=== PATIENT | female | born 1940 | race Caucasian/White ===

== ENCOUNTER → 2023-04-07 10:54 | Outpatient (BNVA) | payer MEDICARE, SELFPAY | PROVIDERS: Visit Provider Neurological Surgery | DX: G95.9 Disease of spinal cord, unspecified (principal); M54.12 Radiculopathy, cervical region; G95.20 Unspecified cord compression | CPT/HCPCS: 99202 ==

== ENCOUNTER 2023-05-18 08:12 | Day surgery (SDC) | payer MEDICARE, SELFPAY ==
[2023-04-28 12:39] VITALS: BP 161/76; PULSE 81; RESP 16; O2SAT 94; BMI 27.3
--- NOTE | 2023-04-28 13:00 | P.CONAN_ITS ---
Documented by User: Chantel Marino NP 05/13/23 10:52 HPI - Anesthesia Eval Consult details Narrative: 83yo F for C3-C4 (ACDF) Ant Cerv Discectomy w/ fusion No recent illness PCP clearance appt 05/13/23. (uncontrolled BP). Unclear if patient started new anti-htn rx from last pcp visit Pulmo optimized at 04/26/23 appt. Changed atrovent to treligy but pt did not start yet. Encouraged to take rx as instructed by entertainment centre manager. Baseline SOB. Follows pulmo. No chest pain. AAA monitored yearly with US by vascular in [place] - 3.6 cm PMFSH Active Problems Active Problems: All Active Problems (Updated 04/28/23 @ 12:16 by Katia Nj RN) Cervical myelopathy with cervical radiculopathy (Acute) Cervical cord compression with myelopathy (Acute) Past Medical History Medical History (Updated 04/28/23 @ 12:16 by Katia Nj RN) AAA (abdominal aortic aneurysm) Abdominal hernia Cataract COPD (chronic obstructive pulmonary disease) Difficulty swallowing Diverticulosis Elevated cholesterol Hyperlipidemia Lipid disorder Localized swelling, mass and lump, unspecified Low back pain Neck pain Osteoporosis Peripheral neuropathy Pulmonary nodule Rheumatoid arthritis SOB (shortness of breath) Family History Family history of problems with anesthesia: No Surgical History Surgical History (Updated 04/28/23 @ 12:27 by Katia Nj RN) H/O colonoscopy History of cardiac catheterization History of lung surgery Hx of cervical spine surgery Hx of foot surgery Hx of knee surgery History of Problems with Anesthesia: No Social History Social History Are you a primary respite care provider to a significant other at home: No Do you presently have visiting nurse or other home services: No Patient Tobacco Use Status: Former Tobacco user Quit Date: 2012 Tobacco use type: Cigarette Years Smoked: 35 Smoked in Last 30 Days: No Use of substances other than those prescribed or required for medical reasons: No Have you been hit, kicked, punched, or otherwise hurt by someone within the past year? If so, by whom?: No Are you DNR?: No Advance Directives: No Advance Directives Information Provided: No Advance Directives on File: No Recently lost weight without trying: No Eating poorly because of decreased appetite: No Nutrition Risks: No Nutritional Risk Poor oral hygiene: No Meds Allergies Allergy/AdvReac Type Severity Reaction Status Date / Time etidronate disodium Allergy Rash Verified 05/18/23 08:27 [From Didronel] fluticasone AdvReac Dry Mucus Verified 05/18/23 08:27 [From Advair Diskus] Membranes salmeterol AdvReac Dry Mucus Verified 05/18/23 08:27 [From Advair Diskus] Membranes tiotropium AdvReac Dry Mucus Verified 05/18/23 08:27 [From Spiriva Respimat] Membranes Home Medications Medication Instructions Recorded Confirmed Last Taken Type albuterol sulfate 90 mcg/actuation 2 puff inhalation QID PRN 04/27/23 05/18/23 05/11/23 History aerosol inhaler Shortness Of Breath aspirin 81 mg tablet,delayed 81 mg PO DAILY 04/27/23 05/18/23 05/11/23 History release ipratropium bromide 17 2 puff inhalation QID 04/27/23 05/18/23 05/15/23 History mcg/actuation HFA aerosol inhaler (Atrovent HFA) prednisone 5 mg tablet 5 mg PO DAILY 04/27/23 04/28/23 05/18/23 History pyridoxine (vitamin B6) 50 mg 100 mg PO DAILY 04/27/23 05/18/23 05/14/23 History tablet rosuvastatin 40 mg tablet 40 mg PO DAILY@1700 04/27/23 05/18/23 05/11/23 History sulfasalazine 500 mg tablet 1,000 mg PO DAILY 04/27/23 04/28/23 05/18/23 History cholecalciferol (vitamin D3) 50 50 mcg PO DAILY 04/28/23 05/18/23 05/14/23 History mcg (2,000 unit) tablet (Vitamin D3) cyanocobalamin (vitamin B-12) 2,000 mcg PO DAILY 04/28/23 05/18/23 05/14/23 History 2,000 mcg tablet,extended release (Vitamin B-12 ER) ibuprofen 400 mg tablet 400 mg PO DAILY PRN Pain 04/28/23 05/18/23 05/11/23 History Trelegy Ellipta 1 puff inhalation DAILY 05/18/23 05/18/23 05/18/23 History Exam Exam Date and Time: April 28, 2023 1300 Height,Weight and Vital Signs: Height 5 ft 2 in Weight 67.6 kg Last Vital Signs Pulse 81 04/28/23 12:39 Resp 16 04/28/23 12:39 BP 161/76 H 04/28/23 12:39 Pulse Ox 94 04/28/23 12:39 O2 Del Method Room Air 04/28/23 12:39 Pertinent Lab Results Pertinent Lab Results: Laboratory Tests 04/28/23 13:42 Sodium 144 Potassium 4.4 Chloride 105 Carbon Dioxide 30 H BUN 17 H Creatinine 0.73 CBC 02/2023 from outside lab WNL Narrative Narrative: EKG 04/2023 SA @ 88 Duplex Abdominal Aorta 05/2022 Distal aortic aneurysm 3cm x 3.6cm Airway Mallampati Class: II TM Dist: >3cm Neck ROM: Full Loose/Missing/Broken Teeth: Yes (#11 capped) Heart: RRR Lungs: CTAB Assessment and Plan Assessment Anesthesia Assessment: Anesthesia Plan Discussed and PAT Visit Final Anesthetic Review Family History of Problems with Anesthesia: No History of Problems with Anesthesia: No Documented by User: Harsh Mallory MD 05/18/23 09:32 [facility] Past Medical History Medical History (Updated 04/28/23 @ 12:16 by Katia Nj RN) AAA (abdominal aortic aneurysm) Abdominal hernia Cataract COPD (chronic obstructive pulmonary disease) Difficulty swallowing Diverticulosis Elevated cholesterol Hyperlipidemia Lipid disorder Localized swelling, mass and lump, unspecified Low back pain Neck pain Osteoporosis Peripheral neuropathy Pulmonary nodule Rheumatoid arthritis SOB (shortness of breath) Surgical History Surgical History (Updated 04/28/23 @ 12:27 by Katia Nj RN) H/O colonoscopy History of cardiac catheterization History of lung surgery Hx of cervical spine surgery Hx of foot surgery Hx of knee surgery Social History Social History Are you a primary respite care provider to a significant other at home: No Do you presently have visiting nurse or other home services: No Patient Tobacco Use Status: Former Tobacco user Quit Date: 2012 Tobacco use type: Cigarette Years Smoked: 35 Smoked in Last 30 Days: No Use of substances other than those prescribed or required for medical reasons: No Have you been hit, kicked, punched, or otherwise hurt by someone within the past year? If so, by whom?: No Are you DNR?: No Advance Directives: No Advance Directives Information Provided: No Advance Directives on File: No Recently lost weight without trying: No Eating poorly because of decreased appetite: No Nutrition Risks: No Nutritional Risk Poor oral hygiene: No Meds Allergies Allergy/AdvReac Type Severity Reaction Status Date / Time etidronate disodium Allergy Rash Verified 05/18/23 08:27 [From Didronel] fluticasone AdvReac Dry Mucus Verified 05/18/23 08:27 [From Advair Diskus] Membranes salmeterol AdvReac Dry Mucus Verified 05/18/23 08:27 [From Advair Diskus] Membranes tiotropium AdvReac Dry Mucus Verified 05/18/23 08:27 [From Spiriva Respimat] Membranes Home Medications Medication Instructions Recorded Confirmed Last Taken Type albuterol sulfate 90 mcg/actuation 2 puff inhalation QID PRN 04/27/23 05/18/23 05/11/23 History aerosol inhaler Shortness Of Breath aspirin 81 mg tablet,delayed 81 mg PO DAILY 04/27/23 05/18/23 05/11/23 History release ipratropium bromide 17 2 puff inhalation QID 04/27/23 05/18/23 05/15/23 History mcg/actuation HFA aerosol inhaler (Atrovent HFA) prednisone 5 mg tablet 5 mg PO DAILY 04/27/23 04/28/23 05/18/23 History pyridoxine (vitamin B6) 50 mg 100 mg PO DAILY 04/27/23 05/18/23 05/14/23 History tablet rosuvastatin 40 mg tablet 40 mg PO DAILY@1700 04/27/23 05/18/23 05/11/23 History sulfasalazine 500 mg tablet 1,000 mg PO DAILY 04/27/23 04/28/23 05/18/23 History cholecalciferol (vitamin D3) 50 50 mcg PO DAILY 04/28/23 05/18/23 05/14/23 History mcg (2,000 unit) tablet (Vitamin D3) cyanocobalamin (vitamin B-12) 2,000 mcg PO DAILY 04/28/23 05/18/23 05/14/23 History 2,000 mcg tablet,extended release (Vitamin B-12 ER) ibuprofen 400 mg tablet 400 mg PO DAILY PRN Pain 04/28/23 05/18/23 05/11/23 History Trelegy Ellipta 1 puff inhalation DAILY 05/18/23 05/18/23 05/18/23 History Assessment and Plan Assessment Anesthesia Assessment: Chart Reviewed Final Anesthetic Review NPO: Yes ASA Class: III Final Preanesthetic Review: No Changes in Pt Med Stat, Meds/Allgs Chart Reviewed, Consent Obtained/Reviewed and Anes Risks/Benef Reviewed Patient Risk: Intermediate Procedure Risk: Intermediate Anesthetic Plan Anesthetic Plan: GA Disposition: Standard PACU
[2023-04-28 14:39] LABS: Anion Gap 13 (12-20); Blood Urea Nitrogen 17 mg/dL (9-16); Calcium 9.5 mg/dL (8.4-10.2); Carbon Dioxide 30 mmol/L (22-29); Chloride 105 mmol/L (96-108); Creatinine Clr Calc Pharmacy 54.4; Estimated Glomerular Filt Rate > 60; Glucose Random 103 mg/dL (60-115); Potassium 4.4 mmol/L (3.3-5.1); Sodium 144 mmol/L (135-145)
[2023-05-18] VITALS (10 sets, daily range): BP systolic 133–171; BP diastolic 57–82; PULSE 74–92; RESP 7–18; TEMP 36.4–37.4; O2SAT 92–98
--- NOTE | ~2023-05-18 | FL_ITS ---
EXAMINATION: XR FLUOROSCOPY WITH IMAGES CLINICAL INFORMATION: C3/C4 ACDF COMPARISON: None available. TECHNIQUE: Fluoroscopy Supervised By: Tiffany. Fluoroscopy Time: 0 minutes. Cumulative Dose: 0.713 mGy. DAP: 0.145 Gycm2. Images: 2. FINDINGS: Images demonstrate surgical instruments present. Anterior plate and screws. The patient is intubated FL/FL guidance in OR IMPRESSION: Imaging assistance provided during a spine procedure
[2023-05-18] MEDS: Albuterol Sulfate (0.083%) 2.5 MG/3 ML VIAL.NEB INHALE (08:43)
[2023-05-18] MEDS: Gabapentin 300 MG CAPSULE PO (08:53)
[2023-05-18] MEDS: Lactated Ringers 1,000 ML 100 ML IVCONT (08:54)
[2023-05-18] MEDS: methocarbamoL 750 MG TABLET PO (08:54)
--- NOTE | 2023-05-18 12:46 | PC.NURSE ---
Dr. Mallory at bedside, made aware of respiratory assessment. Patients home Atrovent 2 puffs taken at bedside before leaving for OR.
--- NOTE | 2023-05-18 14:50 | P.OP_ITS ---
Operative Note Operative Note Date of Service: 05/18/23 Narrative: Preoperative Diagnosis: adjacent degenerative disc disease C3-C4 following an anterior diskectomy fusion C5-C7. Procedure: [id number] discectomy, arthrodesis and implantation cage ; C3-C4 anterior instrumentation ; local autograft; microscope Informed Consent was obtained for this operation. I have explained the nature, purpose and benefits of the operation. I have discussed the risks and benefit of the operation including possible complications or adverse events with patient/family. Alternative(s) were discussed with the patient with their relative benefits and risks as well as the consequences of not accepting the operation were included in obtaining consent. Surgeon: NAYELI LUZ MD, PHD Description of Procedure: this 83-year-old female previously underwent an anterior diskectomy and fusion C5-C7 in another institution. She developed adjacent degenerative disc disease C3-C4. She visited me for a 2nd opinion and I offered her an anterior decompression of to C3-C4 level. The procedure complications were explained. The patient was consented. The patient was brought to the operating room and endotracheally intubated. The patient was put in supine position with slight extension of the neck. Prep and drape was done followed by timeout. A mid cervical incision was made followed by opening of the platysma. The prevertebral fascia was reached following the natural planes. The prevertebral fascia was opened to expose the disc space and the cranial part of the previous placed anterior plate. A spinal needle was placed in the disk space to confirm the correct level with xray. The longus colli muscles were released bilaterally and a self retaining retractor was inserted. Two Colony pins were placed in the C3 and C4 vertebral bodies and distraction was give over the interspace. The discectomy was completed toward the posterior annulus of the disc. The microscope was brought in. The remainder of the discectomy was completed. The posterior ligament was opened and resected to expose the underlying dura. Osteophytes were resected from the body of [] and saved for autograft. Bilateral foraminotomies were done. The endplates were prepared after which a 6 mm cage filled with autograft was inserted into the disc space. A separate attached plate was locked down with 2 x 14 mm screws as anterior instrumentation. Final x-rays in AP and lateral projection showed a satisfactory position of the implant. The physician assistant general manager took over. The Colony pin was removed. Hemostasis was done. He closed the incision in 2 layers with a 3-0 Vicryl. Steri-Strips used to approximate incision. An OpSite with Tegaderm was used to cover the incision. All sponge and needle counts were correct. Patient was extubated and transported in stable is to recovery room. Anesthesia: General Estimated Blood Loss (ml): 40 Duration of Surgery: 60 minutes Postoperative Plan: Discharge home Complications: None
--- NOTE | 2023-05-18 16:08 | PM.DS ---
DS: Providers Provider Date of Service: 05/18/23 Primary care physician: Nonstaff Physician DS: Summary Time Spent with Patient Time attestation: Total time managing care of this patient today ____ minutes. Discharge coordination time: Less than 30 minutes Quality: Safe Use of Opioids Does Pt have an Active Cancer Diagnosis on the Problem List?: No Quality: Stroke Does the patient have a stroke diagnosis?: No Physical Exam Vital Signs: Vital Signs: Last Vital Signs Temp 99.3 F 05/18/23 16:02 Pulse 83 05/18/23 16:02 Resp 16 05/18/23 16:02 BP 148/57 H 05/18/23 16:02 Pulse Ox 95 05/18/23 16:02 O2 Del Method Room Air 05/18/23 16:02 O2 Flow Rate 6 05/18/23 15:47 BMI result Body Mass Index 27.3 Discharge Plan Discharge Patient Disposition: Home, Self-Care Referrals: Physician,Nonstaff [Primary Care Provider] - 1 Week Discharge Medications: No Action sulfasalazine 500 mg tablet 1,000 mg PO DAILY prednisone 5 mg tablet 5 mg PO DAILY aspirin 81 mg Tablet,Delayed Release (Dr/Ec) 81 mg PO DAILY pyridoxine (vitamin B6) 50 mg Tablet 100 mg PO DAILY albuterol sulfate 90 mcg/actuation HFA aerosol inhaler 2 puff inhalation QID PRN (Reason: Shortness Of Breath) rosuvastatin 40 mg tablet 40 mg PO DAILY@1700 Atrovent HFA 17 mcg/actuation Hfa Aerosol Inhaler 2 puff INHALATION QID cyanocobalamin (vitamin B-12) [Vitamin B-12] 2,000 mcg Tablet Extended Release 2,000 mcg PO DAILY cholecalciferol (vitamin D3) [Vitamin D3] 50 mcg (2,000 unit) Tablet 50 mcg PO DAILY ibuprofen [Motrin] 400 mg Tablet 400 mg PO DAILY PRN (Reason: Pain) Trelegy Ellipta 1 puff inhalation DAILY Discharge Orders: Discharge Order (Routine); Ordered 05/18/23 Ordered By: Blas Alfaro
--- NOTE | 2023-05-18 16:23 | PM.DS ---
DS: Providers Provider Date of Service: 05/18/23 Date of discharge: 05/18/23 Primary care physician: Nonstaff Physician Admitting clinician: Ivan Allen DS: Diagnosis Discharge Diagnosis (1) Cervical myelopathy with cervical radiculopathy: Status: Acute DS: Summary Time Spent with Patient Time attestation: Total time managing care of this patient today ____ minutes. Discharge coordination time: Less than 30 minutes Quality: Safe Use of Opioids Does Pt have an Active Cancer Diagnosis on the Problem List?: No Quality: Stroke Does the patient have a stroke diagnosis?: No Physical Exam Vital Signs: Vital Signs: Last Vital Signs Temp 99.3 F 05/18/23 16:02 Pulse 83 05/18/23 16:02 Resp 16 05/18/23 16:02 BP 148/57 H 05/18/23 16:02 Pulse Ox 95 05/18/23 16:02 O2 Del Method Room Air 05/18/23 16:02 O2 Flow Rate 6 05/18/23 15:47 BMI result Body Mass Index 27.3 Discharge Plan Discharge Patient Disposition: Home, Self-Care Referrals: Physician,Nonstaff [Primary Care Provider] - 1 Week Discharge Medications: Continued sulfasalazine 500 mg tablet 1,000 mg PO DAILY prednisone 5 mg tablet 5 mg PO DAILY pyridoxine (vitamin B6) 50 mg Tablet 100 mg PO DAILY albuterol sulfate 90 mcg/actuation HFA aerosol inhaler 2 puff inhalation QID PRN (Reason: Shortness Of Breath) rosuvastatin 40 mg tablet 40 mg PO DAILY@1700 Atrovent HFA 17 mcg/actuation Hfa Aerosol Inhaler 2 puff INHALATION QID cyanocobalamin (vitamin B-12) [Vitamin B-12] 2,000 mcg Tablet Extended Release 2,000 mcg PO DAILY cholecalciferol (vitamin D3) [Vitamin D3] 50 mcg (2,000 unit) Tablet 50 mcg PO DAILY ibuprofen 400 mg Tablet 400 mg PO DAILY PRN (Reason: Pain) Trelegy Ellipta 1 puff inhalation DAILY Held aspirin 81 mg Tablet,Delayed Release (Dr/Ec) 81 mg PO DAILY Hold Instructions: Resume on 05/22/23. Discharge Orders: Discharge Order (Routine); Ordered 05/18/23 Ordered By: Blas Alfaro Diet: Advance to usual diet Activity on Discharge: As tolerated Activity Restrictions/Additional Instructions: After your spinal surgery we ask you to observe the following restrictions/guidelines: Activity: It is normal to feel some discomfort as you increase your activity, but that will improve with time. We ask you avoid heavy lifting or acitivities that cause pain. As a general rule, 8lbs is a safe limit for lifting right after surgery. Walk as much as you feel comfortable but not to exhaustion. You will feel extra tired the first few days after surgery. Stay well hydrated. It is OK to walk up and down stairs You may return to driving when you are off narcotics (such as vicodin, oxycodone, dilaudid, etc), and you are back to normal functional capacity. If you have any concerns please check with office before driving. Return to work is specific to each patient and each surgery, so please speak with your doctor/PA at first follow up. Please bring paperwork such as FMLA at that time if you need it filled out. Medications: We will give you a short supply of narcotics after surgery (usually one weeks worth). If you need more please call the office but do not use more than prescribed. You will need to give our office 48 hours notice if you need narcotics refilled and we do not fill narcotics on weekends or evenings. If you are on a narcotic, it is a good idea to take a stool softener such as colace or senna to avoid constipation If you take blood thinner such as aspirin, Plavix, Coumadin, Effient, Eliquis etc for conditions such as Afib, DVT, Pulmonary embolus, coronary disease, stents etc please speak with your surgeon about specific details as to when you can resume these medications. You can resume NSAIDs on post op day 1 (eg: Motrin, Naproxen, etc). Follow up: Please call the office, , after surgery to arrange a 3 week follow up for wound check. Wound Care: You may remove your dressing on the first day after surgery. You may leave open to air. Please do not remove the steri strips underneath. they will fall off on their own in one week. IT IS NORMAL FOR THE WOUND TO OOZE OR BE BLOODY FOR A FEW DAYS AFTER SURGERY. IF THIS HAPPENS JUST PLACE NEW DRESSING OVER IT TO AVOID STAINING CLOTHES. You may shower on post op day # 1 We ask that you do not let the water soak the wound. If it does get wet, just towel dry lightly. Please do not scrub your incision or place any type of chemical/ointment on the wound. No tub baths, pools or jacuzzis for one month. If you have any leaking or redness from your wound, or fevers, please call office
== END 2023-05-18 16:37 | disposition home or self-care (01) ==
PROVIDERS: Nurse Practitioner; Visit Provider Neurological Surgery
DX: M50.01 Cervical disc disorder with myelopathy, high cervical region (principal); M50.11 Cervical disc disorder with radiculopathy, high cervical region; G95.20 Unspecified cord compression; J44.9 Chronic obstructive pulmonary disease, unspecified; I71.9 Aortic aneurysm of unspecified site, without rupture; Z79.52 Long term (current) use of systemic steroids; Z79.899 Other long term (current) drug therapy; Z98.1 Arthrodesis status
CPT/HCPCS: 22551; 22853; 20936; 22845; 36415; 80048; 94640; C1713; J0131; J0690; J2250; J2405; J3010

== ENCOUNTER 2023-06-09 13:58 | Outpatient (AMB) | payer MEDICARE, SELFPAY ==
--- NOTE | 2023-06-09 14:07 | HO.SPINEOV ---
Intake Intake Visit Reasons: 3 week post op Intake Note: Ms. Bro is here for her 1st post op visit. Supervisor Color Making Required: No Allergies etidronate disodium [From Didronel] Allergy (Verified 05/18/23 08:27) Rash fluticasone [From Advair Diskus] Adverse Reaction (Verified 05/18/23 08:27) Dry Mucus Membranes salmeterol [From Advair Diskus] Adverse Reaction (Verified 05/18/23 08:27) Dry Mucus Membranes tiotropium [From Spiriva Respimat] Adverse Reaction (Verified 05/18/23 08:27) Dry Mucus Membranes Assessment & Plan Assessment & Plan (1) Cervical myelopathy with cervical radiculopathy: Code(s): G95.9 - Disease of spinal cord, unspecified; M54.12 - Radiculopathy, cervical region Plan Dear Colleague, On 06/09/2023, I saw for first and final postoperative visit your patient Danna Bro. She underwent a C3-C4 anterior diskectomy fusion for adjacent degenerative disc disease with cervical myelopathy. Her preoperative neurological symptoms have disappeared. She is very happy with the current outcome. Her swallowing problems will improve over time. Today's x-ray shows a stable construct. I discharged her from further follow-up. Thank you for letting me take care of your patient. Ivan Allen MD, PhD Spine Fellowship Trained Neurosurgeon Director, [facility] Orders: Orders XR cervical spine 2V Today G95.9 - Disease of spinal cord, unspecified, M54.12 - Radiculopathy, cervical region Coding Level of Care Code Global (69976) Diagnoses Cervical myelopathy with cervical radiculopathy G95.9; M54.12
== END 2023-06-09 15:18 | disposition home or self-care (01) ==
PROVIDERS: Visit Provider Neurological Surgery
DX: G95.9 Disease of spinal cord, unspecified (principal); M54.12 Radiculopathy, cervical region
CPT/HCPCS: 99024

== ENCOUNTER 2023-06-09 13:58 | Outpatient (REF) | payer MEDICARE, SELFPAY ==
--- NOTE | ~2023-06-09 | XR_ITS ---
EXAMINATION: XR CERVICAL SPINE CLINICAL INFORMATION: Diseases spinal cord, unspecified C3-C4 fusion COMPARISON: None available. TECHNIQUE: AP and lateral views of the cervical spine were obtained. FINDINGS: The bones are diffusely demineralized. There is C3-C4 anterior fusion device with intervertebral screws and central spacer. There is anterior fusion with plate and screws from C4-C7 with intervertebral screws. There are disc spacers at the C4-C5, C5-C6 and C6-C7. There is no fracture or subluxation. No hardware complication. XR/XR cervical spine 2V IMPRESSION: C3-C4 anterior fusion and C4-T7 anterior fusion without evidence of hardware complication.
== END 2023-06-09 13:59 | disposition home or self-care (01) ==
LOC: HO.HOSX 13:58
PROVIDERS: Visit Provider Neurological Surgery
DX: G95.9 Disease of spinal cord, unspecified (principal); M54.12 Radiculopathy, cervical region
CPT/HCPCS: 72040

== ENCOUNTER 2023-10-05 14:20 | Outpatient (AMB) | payer MEDICARE, SELFPAY ==
--- NOTE | 2023-10-05 14:23 | A.SPINEOV_ITS ---
Intake Intake Visit Reasons: lower back pain Intake Note: Mrs. Bro is here today c/o new symptom, low back pain. MRI done @ [facility]. Jewel Stripper Required: No Allergies etidronate disodium [From Didronel] Allergy (Verified 05/18/23 08:27) Rash fluticasone [From Advair Diskus] Adverse Reaction (Verified 05/18/23 08:27) Dry Mucus Membranes salmeterol [From Advair Diskus] Adverse Reaction (Verified 05/18/23 08:27) Dry Mucus Membranes tiotropium [From Spiriva Respimat] Adverse Reaction (Verified 05/18/23 08:27) Dry Mucus Membranes Assessment & Plan Assessment & Plan (1) Lumbar stenosis with neurogenic claudication: Code(s): M48.062 - Spinal stenosis, lumbar region with neurogenic claudication (2) Scoliosis of lumbar region due to degenerative disease of spine in adult: Code(s): M41.56 - Other secondary scoliosis, lumbar region Plan Dear colleague: On 10/05/2023, I saw Danna Bro for bilateral leg pain. As you know, the patient underwent an anterior diskectomy and fusion C3-C4 in May of 2023. The patient states that she has been suffering from progressive bilateral leg pain with walking and specially standing. The pain radiates down both legs with the right side is more affected than the left side. In the last few weeks the pain has significantly progressed. She is difficulty standing in the kitchen and has to sit down. She walks with a walker to relieve the symptoms radiating down her legs. She denies weakness or numbness. She recently started home exercises although she is very active and daily life. Tylenol and Advil provide relief of her symptoms. Her medical history is unchanged from previous visits. Her medications are unchanged from previous visits. On exam, I see a pleasant comfortable patient. Straight leg raise is negative. No weakness or sensory deficits. Gait is undisturbed. Radiological studies: An x-ray of the lumbar spine shows a grade 1 L4-5 spondylolisthesis and a lumbar degenerative scoliosis with the apex at L3-4. An MRI of the lumbar spine shows severe lumbar spinal stenosis L4-5 and moderate stenosis at L3-4. In summary, this patient is suffering from neurogenic claudication caused by severe spinal stenosis L4-5. The good news is that the L4-5 level is under the scoliotic curve and therefore can be addressed with a simple lumbar decompression L4-5. I discussed the goal surgery and the technique. Her previous neck fusion was uncomplicated and therefore I hope that she does not have to come back for pre testing as her health has been stable but I will leave that up to our anesthesia department. She scheduled for the lumbar decomp ression on 12/23/2023. She needs to stop her aspirin prior to surgery. I spent 40 minutes in his consult for preparation, review of imaging with the patient and her son and discussing plan of care. Thank you for letting me take care of your patient. Do not hesitate to call me with any questions or concerns. Ivan Allen MD, PhD Spine Fellowship Trained Neurosurgeon Director, [facility] Coding Level of Care Code Est Pt Level 5 (88712) Diagnoses Lumbar stenosis with neurogenic claudication M48.062 Scoliosis of lumbar region due to degenerative disease of spine in adult M41.56
== END 2023-10-05 15:02 | disposition home or self-care (01) ==
PROVIDERS: Visit Provider Neurological Surgery
DX: M48.062 Spinal stenosis, lumbar region with neurogenic claudication (principal); M41.56 Other secondary scoliosis, lumbar region
CPT/HCPCS: 99215

== ENCOUNTER → 2023-10-05 14:20 | Outpatient (BNVA) | payer MEDICARE, SELFPAY | PROVIDERS: Visit Provider Neurological Surgery | DX: M48.062 Spinal stenosis, lumbar region with neurogenic claudication (principal); M41.56 Other secondary scoliosis, lumbar region | CPT/HCPCS: 99212 ==

== ENCOUNTER 2023-12-13 11:52 | Day surgery (SDC) | payer MEDICARE, SELFPAY ==
[2023-11-29 09:34] VITALS: BMI 25.4
--- NOTE | 2023-12-10 10:13 | HO.ANESPROP2 ---
Documented by User: Chantel Marino NP 12/10/23 10:19 HPI - Anesthesia Eval Consult details Narrative: 83yo F for L4-5 Microlumbar decompression s/p C3-C4 (ACDF) Ant Cerv Discectomy w/ fusion 05/2023 with [facility] 7 PCP cleared prior to 05/2023 surgery. Last seen in office 11/16/23. States htn controlled Pulmo cleared prior to 05/2023 surgery AAA monitored yearly with US by vascular in [place] - 3.6 cm. Phone assessment only. [facility] Active Problems Active Problems: All Active Problems (Updated 11/29/23 @ 09:25 by Floridalma Aguilar, RN) Scoliosis of lumbar region due to degenerative disease of spine in adult (Acute) Lumbar stenosis with neurogenic claudication (Acute) Cervical cord compression with myelopathy (Acute) Cervical myelopathy with cervical radiculopathy (Acute) Past Medical History Medical History Low iron Difficulty swallowing Abdominal hernia SOB (shortness of breath) Elevated cholesterol AAA (abdominal aortic aneurysm) Rheumatoid arthritis Peripheral neuropathy Osteoporosis Neck pain Low back pain Localized swelling, mass and lump, unspecified Lipid disorder Pulmonary nodule Hyperlipidemia Diverticulosis COPD (chronic obstructive pulmonary disease) Cataract Family History Family history of problems with anesthesia: No Surgical History Surgical History Hx of cervical discectomy (05/18/23) History of cardiac catheterization Hx of foot surgery History of lung surgery Hx of knee surgery Hx of cervical spine surgery H/O colonoscopy History of Problems with Anesthesia: No Social History Social History Household Members: None Housing: House Are you a primary hiv/aids care nurse to a significant other at home: No Do you presently have visiting nurse or other home services: No Patient Tobacco Use Status: Former Tobacco user Quit Date: Tobacco use type: Cigarette Years Smoked: 35 Use of substances other than those prescribed or required for medical reasons: No Have you been hit, kicked, punched, or otherwise hurt by someone within the past year? If so, by whom?: No Are you DNR?: No Advance Directives: No Advance Directives Information Provided: Yes Advance Directives on File: No Recently lost weight without trying: No Nutrition Risks: No Nutritional Risk Meds Allergies Allergy/AdvReac Type Severity Reaction Status Date / Time etidronate disodium Allergy Rash Verified 12/13/23 12:06 [From Didronel] fluticasone AdvReac Dry Mucus Verified 12/13/23 12:06 [From Advair Diskus] Membranes salmeterol AdvReac Dry Mucus Verified 12/13/23 12:06 [From Advair Diskus] Membranes tiotropium AdvReac Dry Mucus Verified 12/13/23 12:06 [From Spiriva Respimat] Membranes Home Medications Medication Instructions Recorded Confirmed Last Taken Type albuterol sulfate 90 mcg/actuation 2 puff inhalation QID PRN 04/27/23 12/13/23 05/11/23 History aerosol inhaler Shortness Of Breath aspirin 81 mg tablet,delayed 81 mg PO DAILY 04/27/23 12/13/23 12/06/23 History release ipratropium bromide 17 2 puff inhalation QID PRN 04/27/23 12/13/23 12/13/23 History mcg/actuation HFA aerosol inhaler Shortness Of Breath Or Wheezing (Atrovent HFA) pyridoxine (vitamin B6) 50 mg 100 mg PO DAILY 04/27/23 12/13/23 05/14/23 History tablet rosuvastatin 40 mg tablet 40 mg PO DAILY@1700 04/27/23 12/13/23 05/11/23 History sulfasalazine 500 mg tablet 500 mg PO BID 04/27/23 12/13/23 12/11/23 History cholecalciferol (vitamin D3) 50 50 mcg PO DAILY 04/28/23 12/13/23 05/14/23 History mcg (2,000 unit) tablet (Vitamin D3) cyanocobalamin (vitamin B-12) 2,000 mcg PO DAILY 04/28/23 12/13/23 05/14/23 History 2,000 mcg tablet,extended release (Vitamin B-12 ER) Trelegy Ellipta 1 puff inhalation DAILY 05/18/23 12/13/23 12/13/23 History flurbiprofen 100 mg tablet 100 mg PO BID 11/29/23 12/13/23 12/06/23 History Exam Height,Weight and Vital Signs: Height 5 ft 2 in Weight 63.049 kg Pertinent Lab Results Pertinent Lab Results: CBC and BMP from outside facility 11/2023 WNL Narrative Narrative: EKG 04/2023 SA @ 88 Duplex Abdominal Aorta 05/2022 Distal aortic aneurysm 3cm x 3.6cm Assessment and Plan Assessment Anesthesia Assessment: Chart Reviewed Final Anesthetic Review Family History of Problems with Anesthesia: No History of Problems with Anesthesia: No Documented by User: Suzanne Soliz MD 12/13/23 13:38 PMFSH Past Medical History Medical History Low iron Difficulty swallowing Abdominal hernia SOB (shortness of breath) Elevated cholesterol AAA (abdominal aortic aneurysm) Rheumatoid arthritis Peripheral neuropathy Osteoporosis Neck pain Low back pain Localized swelling, mass and lump, unspecified Lipid disorder Pulmonary nodule Hyperlipidemia Diverticulosis COPD (chronic obstructive pulmonary disease) Cataract Surgical History Surgical History Hx of cervical discectomy (05/18/23) History of cardiac catheterization Hx of foot surgery History of lung surgery Hx of knee surgery Hx of cervical spine surgery H/O colonoscopy Social History Social History Household Members: None Housing: House Are you a primary hiv/aids care nurse to a significant other at home: No Do you presently have visiting nurse or other home services: No Patient Tobacco Use Status: Former Tobacco user Quit Date: Tobacco use type: Cigarette Years Smoked: 35 Use of substances other than those prescribed or required for medical reasons: No Have you been hit, kicked, punched, or otherwise hurt by someone within the past year? If so, by whom?: No Are you DNR?: No Advance Directives: No Advance Directives Information Provided: Yes Advance Directives on File: No Recently lost weight without trying: No Nutrition Risks: No Nutritional Risk Meds Allergies Allergy/AdvReac Type Severity Reaction Status Date / Time etidronate disodium Allergy Rash Verified 12/13/23 12:06 [From Didronel] fluticasone AdvReac Dry Mucus Verified 12/13/23 12:06 [From Advair Diskus] Membranes salmeterol AdvReac Dry Mucus Verified 12/13/23 12:06 [From Advair Diskus] Membranes tiotropium AdvReac Dry Mucus Verified 12/13/23 12:06 [From Spiriva Respimat] Membranes Home Medications Medication Instructions Recorded Confirmed Last Taken Type albuterol sulfate 90 mcg/actuation 2 puff inhalation QID PRN 04/27/23 12/13/23 05/11/23 History aerosol inhaler Shortness Of Breath aspirin 81 mg tablet,delayed 81 mg PO DAILY 04/27/23 12/13/23 12/06/23 History release ipratropium bromide 17 2 puff inhalation QID PRN 04/27/23 12/13/23 12/13/23 History mcg/actuation HFA aerosol inhaler Shortness Of Breath Or Wheezing (Atrovent HFA) pyridoxine (vitamin B6) 50 mg 100 mg PO DAILY 04/27/23 12/13/23 05/14/23 History tablet rosuvastatin 40 mg tablet 40 mg PO DAILY@1700 04/27/23 12/13/23 05/11/23 History sulfasalazine 500 mg tablet 500 mg PO BID 04/27/23 12/13/23 12/11/23 History cholecalciferol (vitamin D3) 50 50 mcg PO DAILY 04/28/23 12/13/23 05/14/23 History mcg (2,000 unit) tablet (Vitamin D3) cyanocobalamin (vitamin B-12) 2,000 mcg PO DAILY 04/28/23 12/13/23 05/14/23 History 2,000 mcg tablet,extended release (Vitamin B-12 ER) Trelegy Ellipta 1 puff inhalation DAILY 05/18/23 12/13/23 12/13/23 History flurbiprofen 100 mg tablet 100 mg PO BID 11/29/23 12/13/23 12/06/23 History Exam Airway Mallampati Class: III TM Dist: <=3cm Neck ROM: Limited Heart: rrr Lungs: cya Assessment and Plan Assessment Anesthesia Assessment: Anesthesia Plan Discussed Final Anesthetic Review NPO: Yes ASA Class: III Final Preanesthetic Review: No Changes in Pt Med Stat, Meds/Allgs Chart Reviewed, Consent Obtained/Reviewed and Anes Risks/Benef Reviewed Patient Risk: Intermediate Procedure Risk: Intermediate Anesthetic Plan Anesthetic Plan: GA Disposition: Standard PACU
[2023-12-13] VITALS (9 sets, daily range): BP systolic 115–144; BP diastolic 50–67; PULSE 78–102; RESP 11–17; TEMP 36.2–37; O2SAT 94–99; BMI 26.4
--- NOTE | ~2023-12-13 | FL_ITS ---
EXAMINATION: XR FLUOROSCOPY WITH IMAGES CLINICAL INFORMATION: L4-L5 microlumbar decompression COMPARISON: None available. TECHNIQUE: Fluoroscopy Supervised By: Dr. Allen. Fluoroscopy Time: 0.0 minutes. Cumulative Dose: 1.07 mGy. DAP: 0.0186 Gycm2. Images: 1. FINDINGS: Lateral view of the lower lumbar spine demonstrate an instrument with its tip projected over the posterior spine at the level L4-L5. FL/FL guidance in OR IMPRESSION: Fluoroscopic imaging assistance provided during a spine procedure.
--- NOTE | 2023-12-13 06:57 | MHC.SHP ---
Pre-Procedural Eval Section A - 24 Hr Update-Section A only Date of Service: 12/13/23 The patient is an INPATIENT: No Changes since office visit: No Cold of Flu in the past 2 weeks, No New Medical Problems, No Changes in Medication and No Patient answered all questions The patient has been examined within 24 hours of the surgical procedure. The History & Physical has been completed within 30 days and I have reviewed it.: No Section B - Complete if H&P > 30 days Chief Complaint: Spinal stenosis,Other secondary scoliosis, lumbar Allergies: Allergies Allergy/AdvReac Type Severity Reaction Status Date / Time etidronate disodium Allergy Rash Verified 05/18/23 08:27 [From Didronel] fluticasone AdvReac Dry Mucus Verified 05/18/23 08:27 [From Advair Diskus] Membranes salmeterol AdvReac Dry Mucus Verified 05/18/23 08:27 [From Advair Diskus] Membranes tiotropium AdvReac Dry Mucus Verified 05/18/23 08:27 [From Spiriva Respimat] Membranes Review of Systems Sugical H&P ROS: Negative: Constitution, Cardiovascular, Respiratory, Neurological, Psychiatric, Hem-Onc, Allergic/Immunologic, Gastrointestinal, Genitourinary, Musculoskeletal, Integumentary, Endocrine and Eyes/Ears/Nose/Throat Exam Surgical H&P Exam: Not Evaluated: HEENT, Not Evaluated: Heart, Not Evaluated: Lungs, Not Evaluated: Extremities, Not Evaluated: Abdomen, Not Evaluated: Skin and Not Evaluated: Neurological Plan Diagnosis/Plan: Unchanged L4-5 bilateral decompression Time Spent With Patient Time: Total time managing care of this patient today __5__ minutes.
[2023-12-13] MEDS: methocarbamoL 750 MG TABLET PO (12:25)
[2023-12-13] MEDS: Gabapentin 300 MG CAPSULE PO (12:26)
[2023-12-13] MEDS: Lactated Ringers 1,000 ML 100 ML IVCONT (12:36)
[2023-12-13] MEDS: Albuterol Sulfate (0.083%) 2.5 MG/3 ML VIAL.NEB INHALE (12:57)
--- NOTE | 2023-12-13 15:12 | P.OP_ITS ---
Operative Note Operative Note Date of Service: 12/13/23 Narrative: Preoperative Diagnosis: L4-5 spinal stenosis/lateral recess stenosis/neural foraminal stenosis Operation: L4-5 Laminotomy, Partial facetectomy and foraminotomy with use of microscope Consent Informed Consent was obtained for this operation. I have explained the nature, purpose and benefits of the operation. I have discussed the risks and benefit of the operation including possible complications or adverse events with patient/family. Alternative(s) were discussed with the patient with their relative benefits and risks as well as the consequences of not accepting the operation were included in obtaining consent. Surgeon: NAYELI LUZ MD, PHD Procedure Assisted By: Blas Trevino Description of Procedure This patient is suffering neurogenic claudication due to L4-5 spinal stenosis. The patient was offered a decompression. The procedure complications were explained. The patient was consented. The patient was brought to the operating room and endotracheally intubated. The patient was turned in prone position on the Buck frame. Prep and drape was done followed by timeout. The Physician family readiness support assistant provided access. A mid lumbar incision was made followed by release of the paravertebral muscle on the left side to expose the L4-5 lamina and facet joints. An intraoperative x-ray was obtained to confirm the correct level. The microscope was brought in. I took over the procedure. The high-speed drill was used to do a left L4-5 laminotomy until flavum ligament was reached. A #2 Kerrison was used to expand the laminotomy near flush to the pedicles and to include a partial facetectomy. The flavum ligament was opened and resected with a #3 Kerrison to decompress the underlying thecal sac. The flavum ligament was removed to decompress the lateral recess and the exiting L5 nerve roots. A long nerve hook could be easily passed along the medial side of the pedicle as a sign of adequate decompression. Then the patient was turned contralaterally. The spinous process was undercut and in this way I was able to perform a similar procedure on the contralateral side to decompress the right side. In other words a bilateral lumbar laminotomy was done through a left-sided approach. The microscope was removed. Hemostasis was done. The physician family readiness support assistant close the Incision in 2 layers. Steri-Strips were used to approximate incision. An OpSite with Tegaderm was used to cover the incision. All sponge needle counts were correct. Patient was extubated and transported in stable is to recovery room. Anesthesia: General Estimated Blood Loss (ml): 20 mL Complications: None Duration of Surgery: Under 60 Minutes Postoperative Plan: Discharge to home
--- NOTE | 2023-12-13 15:26 | PM.DS ---
DS: Providers Provider Date of Service: 12/13/23 Date of discharge: 12/13/23 Primary care physician: Nonstaff Physician Admitting clinician: Ivan Allen DS: Diagnosis Discharge Diagnosis (1) Lumbar stenosis with neurogenic claudication: Status: Acute DS: Summary Time Attestation Discharge coordination time: Less than 30 minutes Quality: Safe Use of Opioids Does Pt have an Active Cancer Diagnosis on the Problem List?: No Quality: Stroke Does the patient have a stroke diagnosis?: No Physical Exam Vital Signs: Vital Signs: Last Vital Signs Temp 98.6 F 12/13/23 12:13 Pulse 95 12/13/23 12:57 Resp 16 12/13/23 12:57 BP 144/65 H 12/13/23 12:13 Pulse Ox 96 12/13/23 12:13 O2 Del Method Room Air 12/13/23 12:13 BMI result Body Mass Index 26.4 Discharge Plan Discharge Patient Disposition: Home, Self-Care Referrals: Physician,Nonstaff [Primary Care Provider] - 1 Week Discharge Medications: New docusate sodium [Colace] 100 mg capsule 100 mg PO BID Qty: 20 0RF oxycodone 5 mg tablet 5 mg PO Q4H PRN (Reason: pain) Qty: 30 0RF Rx Instructions: Partial Fill upon patient request. Continued sulfasalazine 500 mg tablet 500 mg PO BID aspirin 81 mg Tablet,Delayed Release (Dr/Ec) 81 mg PO DAILY Hold Instructions: Resume on 05/22/23. pyridoxine (vitamin B6) 50 mg Tablet 100 mg PO DAILY albuterol sulfate 90 mcg/actuation HFA aerosol inhaler 2 puff inhalation QID PRN (Reason: Shortness Of Breath) rosuvastatin 40 mg tablet 40 mg PO DAILY@1700 Atrovent HFA 17 mcg/actuation Hfa Aerosol Inhaler 2 puff INHALATION QID PRN (Reason: Shortness Of Breath Or Wheezing) cyanocobalamin (vitamin B-12) [Vitamin B-12] 2,000 mcg Tablet Extended Release 2,000 mcg PO DAILY cholecalciferol (vitamin D3) [Vitamin D3] 50 mcg (2,000 unit) Tablet 50 mcg PO DAILY Trelegy Ellipta 1 puff inhalation DAILY flurbiprofen 100 mg tablet 100 mg PO BID Discharge Orders: Discharge Order (Routine); Ordered 12/13/23 Ordered By: Blas T Alfaro Diet: Advance to usual diet Activity on Discharge: As tolerated Activity Restrictions/Additional Instructions: After your spinal surgery we ask you to observe the following restrictions/guidelines: Activity: It is normal to feel some discomfort as you increase your activity, but that will improve with time. We ask you avoid heavy lifting or acitivities that cause pain. As a general rule, 8lbs is a safe limit for lifting right after surgery. Walk as much as you feel comfortable but not to exhaustion. You will feel extra tired the first few days after surgery. Stay well hydrated. It is OK to walk up and down stairs You may return to driving when you are off narcotics (such as vicodin, oxycodone, dilaudid, etc), and you are back to normal functional capacity. If you have any concerns please check with office before driving. Return to work is specific to each patient and each surgery, so please speak with your doctor/PA at first follow up. Please bring paperwork such as FMLA at that time if you need it filled out. Medications: For optimum pain control, it is best to start with a combination of 500 mg of Tylenol every 4 hours with 600 mg of Motrin every 8 hours, and use narcotics as needed in between for breakthrough pain. We will give you a short supply of narcotics after surgery (usually one weeks worth). If you need more please call the office but do not use more than prescribed. You will need to give our office 48 hours notice if you need narcotics refilled and we do not fill narcotics on weekends or evenings. If you are on a narcotic, it is a good idea to take a stool softener such as colace or senna to avoid constipation If you take blood thinner such as aspirin, Plavix, Coumadin, Effient, Eliquis etc for conditions such as Afib, DVT, Pulmonary embolus, coronary disease, stents etc please speak with your surgeon about specific details as to when you can resume these medications. You can resume NSAIDs on post op day 1 (eg: Motrin, Naproxen, etc). Follow up: Please call the office, , after surgery to arrange a 3 week follow up for wound check. Wound Care: You may remove your dressing on the first day after surgery. ?You may ?leave open to air. Please do not remove the steri strips underneath. they will fall off on their own in one week. IT IS NORMAL FOR THE WOUND TO OOZE OR BE BLOODY FOR A FEW DAYS AFTER SURGERY. ?IF THIS HAPPENS JUST PLACE NEW DRESSING OVER IT TO AVOID STAINING CLOTHES. You may shower on post op day # 1 We ask that you do not let the water soak the wound. If it does get wet, just towel dry lightly. Please do not scrub your incision or place any type of chemical/ointment on the wound. No tub baths, pools or jacuzzis for one month. If you have any leaking or redness from your wound, or fevers, please call office
== END 2023-12-13 17:10 | disposition home or self-care (01) ==
PROVIDERS: Visit Provider Neurological Surgery
PROC: (CPT 63047; principal; 2023-12-13 14:10)
DX: M48.062 Spinal stenosis, lumbar region with neurogenic claudication (principal); M41.56 Other secondary scoliosis, lumbar region; J44.9 Chronic obstructive pulmonary disease, unspecified; R91.1 Solitary pulmonary nodule; R06.02 Shortness of breath; E78.5 Hyperlipidemia, unspecified; M06.9 Rheumatoid arthritis, unspecified; D50.9 Iron deficiency anemia, unspecified; I71.40 Abdominal aortic aneurysm, without rupture, unspecified; Z98.1 Arthrodesis status; Z99.89 Dependence on other enabling machines and devices; Z79.51 Long term (current) use of inhaled steroids; Z79.82 Long term (current) use of aspirin; Z79.899 Other long term (current) drug therapy; Z88.8 Allergy status to other drugs, medicaments and biological substances; Z87.891 Personal history of nicotine dependence
CPT/HCPCS: 63047; 94640; J0131; J0690; J1100; J1885; J2371; J2405; J2704; J3010

== ENCOUNTER → 2023-12-13 11:52 | Outpatient (BNV) | payer MEDICARE, SELFPAY | PROVIDERS: Visit Provider Neurological Surgery | DX: M48.062 Spinal stenosis, lumbar region with neurogenic claudication (principal) | CPT/HCPCS: 63047; 99499 ==

== ENCOUNTER 2024-01-05 09:02 | Outpatient (AMB) | payer MEDICARE, SELFPAY ==
--- NOTE | 2024-01-05 09:07 | HO.SPINEOV ---
Intake Intake Visit Reasons: 1st post op Intake Note: Ms. Bro is here today for 1st Post Op. Housekeeping Cleaner Required: No Allergies etidronate disodium [From Didronel] Allergy (Verified 12/13/23 12:06) Rash fluticasone [From Advair Diskus] Adverse Reaction (Verified 12/13/23 12:06) Dry Mucus Membranes salmeterol [From Advair Diskus] Adverse Reaction (Verified 12/13/23 12:06) Dry Mucus Membranes tiotropium [From Spiriva Respimat] Adverse Reaction (Verified 12/13/23 12:06) Dry Mucus Membranes Assessment & Plan Assessment & Plan (1) S/P spinal surgery: Code(s): Z98.890 - Other specified postprocedural states Plan Procedure: L4-5 Laminotomy, Partial facetectomy and foraminotomy Danna comes in today for her 1st postoperative visit. She reports she is very satisfied with the surgery and feels much better than she did pre-operatively. The patient reports she is up walking around and completing the majority of her ADLs. She reports no pain and is very happy that she had the surgery. She states that her healing course was much easier for this surgery compared to her prior ACDF. No neurological deficits. Sensation grossly intact. Patient is able to ambulate well, rises from a seated position without difficulty. Incision site is closed, well healing, with no signs of drainage. There is no need for continued routine follow-up. She may follow-up as needed. Allen Allen MD,PhD [facility] Coding Level of Care Code Global (44284) Diagnoses S/P spinal surgery Z98.890
== END 2024-01-05 09:36 | disposition home or self-care (01) ==
PROVIDERS: Visit Provider Physician Assistant
DX: Z98.890 Other specified postprocedural states (principal)
CPT/HCPCS: 99024

== ENCOUNTER → 2024-01-05 09:02 | Outpatient (BNVA) | payer MEDICARE, SELFPAY | PROVIDERS: Visit Provider Physician Assistant | DX: Z98.890 Other specified postprocedural states (principal) | CPT/HCPCS: 99212 ==